=== PATIENT | female | born 1970 | race Caucasian/White ===

== ENCOUNTER 2016-05-26 17:22 | Observation (INO) | payer BC ==
[~2016-05-26] VITALS: Ht 175.3 cm; Wt 88.6 kg
[2016-05-26] VITALS (7 sets, daily range): BP systolic 142–195; BP diastolic 94–106; PULSE 89–105; RESP 16–18; TEMP 99.3; O2SAT 95–98
[2016-05-26] MEDS ORDERED: DOXY1TAB PO (17:45)
[2016-05-26] MEDS ORDERED: SODIUM CHLORID 0.9% 500 ML INJ 500 ML IV ONE (17:45)
[2016-05-26] MEDS ORDERED: NITROGLYCERIN 0.4 MG SL 25 TABS/BTL SL ONE (17:45)
[2016-05-26] MEDS ORDERED: LAMO150 PO (17:45)
[2016-05-26] MEDS ORDERED: SODIUM CHLORIDE 0.9% FLUSH 5 ML FLUSH IVF PRN (17:45)
[2016-05-26] MEDS ORDERED: LORA1TAB12 PO (17:45)
[2016-05-26] MEDS ORDERED: WELL200T PO (17:45)
--- NOTE | 2016-05-26 17:45 | PD ---
HPI Chief Complaint: Chest Pain Time Seen by Provider: 17:29 Travel History International Travel<30 days: No Contact w/Intl Traveler<30days: No Traveled to known affect area: No History of Present Illness HPI 45-year-old female presents with central chest heaviness that started this afternoon 45 minutes ago. She states she tried one of her lorazepam as when she 's had it in the past it was a panic attack but that did not help. She also took 4 baby aspirin and when it did not go away she came in here. She denies other associated symptoms. She states in 2007 she had chest pain and had a negative stress test workup at [facility]. Quality is heaviness. Severity is moderate. She denies specific modifying factors. [facility] Past Medical History Anxiety: Yes Depression: Yes ?: Not LMP: 04/27/16 Past Surgical History Surgical History: No Previous Surgery Social History Alcohol Use: No Tobacco Use: No Substance Use: No Allergies-Medications (Allergen,Severity, Reaction): Coded Allergies: No Known Allergies (Unverified , 05/26/16) Reported Meds & Prescriptions Reported Meds & Active Scripts Active Reported Milk Thistle 150 Mg Cap Doryx (Doxycycline Hyclate) 50 Mg Tab 50 Mg PO HS Lamictal (Lamotrigine) 150 Mg Tab 300 Mg PO DAILY Wellbutrin SR 12 HR (Bupropion HCl) 200 Mg Tab 200 Mg PO Q12HR Lorazepam 1 Mg Tab 1 Mg PO BID PRN Review of Systems Except as stated in HPI: all other systems reviewed are Neg Physical Exam Narrative GENERAL: Well-nourished, well-developed patient. SKIN: Warm and dry. HEAD: Normocephalic and atraumatic. EYES: No injection or drainage. ENT: No nasal drainage noted. NECK: Supple, trachea midline. CARDIOVASCULAR: Regular rate and rhythm RESPIRATORY: Breath sounds equal bilaterally. No accessory muscle use. GASTROINTESTINAL: Abdomen soft, non-tender, nondistended. EXTREMITIES: No edema. NEUROLOGICAL: Awake and alert. Motor and sensory grossly within normal limits. Normal speech. Data Data Last Documented VS Vital Signs Date Time Temp Pulse Resp B/P Pulse Ox O2 Delivery O2 Flow Rate FiO2 05/26/16 18:18 105 18 142/94 95 Room Air 05/26/16 17:35 99.3 Orders Electrocardiogram (05/26/16 17:37) Ckmb (Isoenzyme) Profile (05/26/16 17:37) Complete Blood Count With Diff (05/26/16 17:37) Comprehensive Metabolic Panel (05/26/16 17:37) D-Dimer (05/26/16 17:37) Magnesium (Mg) (05/26/16 17:37) Prothrombin Time / Inr (Pt) (05/26/16 17:37) Act Partial Throm Time (Ptt) (05/26/16 17:37) Troponin I (05/26/16 17:37) Chest, Single Ap (05/26/16 17:37) Ecg Monitoring (05/26/16 17:37) Bilateral Bp Monitoring (05/26/16 17:37) Iv Access Insert/Monitor (05/26/16 17:37) Oximetry (05/26/16 17:37) Sodium Chloride 0.9% Flush (Ns Flush) (05/26/16 17:45) Nitroglycerin Sl (Nitrostat Sl) (05/26/16 17:45) Sodium Chlorid 0.9% 500 Ml Inj (Ns 500 M (05/26/16 17:45) Labs Laboratory Tests Test 05/26/16 17:50 White Blood Count 8.2 TH/MM3 Red Blood Count 4.56 MIL/MM3 Hemoglobin 13.9 GM/DL Hematocrit 41.8 % Mean Corpuscular Volume 91.6 FL Mean Corpuscular Hemoglobin 30.5 PG Mean Corpuscular Hemoglobin 33.3 % Concent Red Cell Distribution Width 13.1 % Platelet Count 314 TH/MM3 Mean Platelet Volume 8.9 FL Neutrophils (%) (Auto) 58.3 % Lymphocytes (%) (Auto) 26.4 % Monocytes (%) (Auto) 10.3 % Eosinophils (%) (Auto) 3.9 % Basophils (%) (Auto) 1.1 % Neutrophils # (Auto) 4.8 TH/MM3 Lymphocytes # (Auto) 2.2 TH/MM3 Monocytes # (Auto) 0.8 TH/MM3 Eosinophils # (Auto) 0.3 TH/MM3 Basophils # (Auto) 0.1 TH/MM3 CBC Comment DIFF FINAL Differential Comment Prothrombin Time 10.1 SEC Prothromb Time International 0.9 RATIO Ratio Activated Partial 26.1 SEC Thromboplast Time D-Dimer Quantitative (PE/DVT) 0.24 MG/L FEU Sodium Level 139 MEQ/L Potassium Level 3.9 MEQ/L Chloride Level 104 MEQ/L Carbon Dioxide Level 25.1 MEQ/L Anion Gap 10 MEQ/L Blood Urea Nitrogen 16 MG/DL Creatinine 1.20 MG/DL Estimat Glomerular Filtration 49 ML/MIN Rate Random Glucose 113 MG/DL Calcium Level 8.5 MG/DL Magnesium Level 1.8 MG/DL Total Bilirubin 0.4 MG/DL Aspartate Amino Transf 16 U/L (AST/SGOT) Alanine Aminotransferase 29 U/L (ALT/SGPT) Alkaline Phosphatase 90 U/L Total Creatine Kinase 93 U/L Troponin I LESS THAN 0.02 NG/ML Total Protein 7.3 GM/DL Albumin 3.4 GM/DL MDM Medical Decision Making Medical Screen Exam Complete: Yes Emergency Medical Condition: Yes Medical Record Reviewed: Yes (past history confirmed) Interpretation(s) EKG shows NSR, no ST elevation or depression, and no arrhythmias. No significant T-wave inversions. Last 24 hours Impressions Chest X-Ray 05/26/16 [id number] Signed Impressions: Service Date/Time: Thursday, May 26, 2016 17:58 - CONCLUSION: No evidence of acute cardiopulmonary disease. Rubin Jenkins MD CBC & BMP Diagram 05/26/16 17:50 Differential Diagnosis Musculoskeletal, gastritis, PE, atypical cardiac Narrative Course Will check blood work, chest x-ray and dose with nitroglycerin and reevaluate ed workup no acute, agrees to [facility] observation Physician Communication Physician Communication dr shearer agrees to admit Diagnosis Primary Impression: Chest pain Qualified Code: R07.9 - Chest pain, unspecified type Admitting Information Admitting Physician Requests: Observation Anjelica Reid MD May 26, 2016 17:45
[2016-05-26] MEDS ORDERED: MILK150C (17:48)
[2016-05-26 18:10] LABS: AUTOMATED NEUTROPHIL # 4.8 TH/MM3 (1.8-7.7); BASOPHIL # 0.1 TH/MM3 (0-0.2); BASOPHIL % 1.1 % (0.0-2.0); EOSINOPHIL # 0.3 TH/MM3 (0-0.4); EOSINOPHIL % 3.9 % (0.0-4.0); HEMATOCRIT 41.8 % (35.0-46.0); HEMO FLAGS DIFF FINAL; LYMPH % 26.4 % (9.0-44.0); LYMPHOCYTE # 2.2 TH/MM3 (1.0-4.8); MEAN CELL VOLUME 91.6 FL (80.0-100.0); MEAN CORPUSCULAR HEMOGLOBIN 30.5 PG (27.0-34.0); MEAN CORPUSCULAR HGB CONC 33.3 % (32.0-36.0); MONO % 10.3 % (0.0-8.0); NEUT % 58.3 % (16.0-70.0); PLATELET COUNT 314 TH/MM3 (150-450); RED BLOOD COUNT 4.56 MIL/MM3 (4.00-5.30); RED CELL DISTRIBUTION WIDTH 13.1 % (11.6-17.2); WHITE BLOOD COUNT 8.2 TH/MM3 (4.0-11.0)
--- NOTE | 2016-05-26 18:17 | RADHPO ---
EXAM DATE/TIME: 05/26/2016 17:58 [facility] COMPARISON: No previous studies available for comparison. INDICATIONS : Chest pain. MEDICAL HISTORY : None. SURGICAL HISTORY : None. ENCOUNTER: Initial ACUITY: 1 day PAIN SCORE: 7/10 LOCATION: Bilateral chest FINDINGS: A single view of the chest demonstrates the lungs to be symmetrically aerated without evidence of mas s, infiltrate or effusion. The cardiomediastinal contours are unremarkable. Osseous structures are intact. CONCLUSION: No evidence of acute cardiopulmonary disease. Rubin Jenkins MD on May 26, 2016 at 18:14 Board Certified Radiologist. This report was verified electronically.
[2016-05-26 18:20] LABS: CHLORIDE 104 MEQ/L (98-107); POTASSIUM 3.9 MEQ/L (3.5-5.1); SODIUM (NA) 139 MEQ/L (136-145)
[2016-05-26 18:24] LABS: ANION GAP 10 MEQ/L (5-15); BICARBONATE 25.1 MEQ/L (21.0-32.0); BLOOD UREA NITROGEN 16 MG/DL (7-18)
[2016-05-26 18:27] LABS: ALT (GPT) 29 U/L (10-53); AST (GOT) 16 U/L (15-37); GLOMERULAR FILTRATION RATE 49 ML/MIN (>89)
[2016-05-26 18:28] LABS: MAGNESIUM 1.8 MG/DL (1.5-2.5); TOTAL BILIRUBIN ADULT 0.4 MG/DL (0.2-1.0)
[2016-05-26 18:30] LABS: ALKALINE PHOSPHATASE 90 U/L (45-117)
[2016-05-26 18:32] LABS: APTT (PATIENT) 26.1 SEC (24.3-30.1); CREATINE KINASE 93 U/L (26-192); INTERNATIONAL NORMALIZED RATIO 0.9 RATIO; PROTHROMBIN TIME - PATIENT 10.1 SEC (9.8-11.6)
[2016-05-26] MEDS ORDERED: SODIUM CHLORIDE 0.9% FLUSH 5 ML FLUSH IV PRN (19:15)
[2016-05-26] MEDS ORDERED: NITROGLYCERIN 0.4 MG SL 25 TABS/BTL SL PRN (19:15)
[2016-05-26 20:58] LABS: CREATINE KINASE 89 U/L (26-192)
[2016-05-26] MEDS: SODIUM CHLORIDE 0.9% FLUSH 5 ML FLUSH IV SCH (21:00)
[2016-05-27] VITALS (10 sets, daily range): BP systolic 143–170; BP diastolic 86–103; PULSE 78–90; RESP 18–20; TEMP 97.5–98.6; O2SAT 95–99
[2016-05-27 00:49] LABS: CREATINE KINASE 81 U/L (26-192)
[2016-05-27] MEDS ORDERED: LORazepam 1 MG TAB PO PRN (07:45)
--- NOTE | 2016-05-27 07:52 | EKG ---
Date Performed: 05/26/2016 Time Performed: 17:28:10 PTAGE: 45 years EKG: Sinus tachycardia. Poor R wave progression - probable normal variant Septal T wave changes are nonspecific Low QRS voltages in precordial leads Borderline ECG NO PREVIOUS TRACING DOCTOR: Adan Arzate Interpretating Date/Time 05/27/2016 07:50:39
--- NOTE | 2016-05-27 08:34 | HHI.HP ---
[facility] Service [place] Primary Care Physician No Primary Care Physician Admission Diagnosis chest pain Diagnoses: (1) Chest pain Diagnosis: Principal (2) Strain of left trapezius muscle Diagnosis: Principal (3) Hypertensive urgency Diagnosis: Principal (4) ANIRUDH (acute kidney injury) Diagnosis: Principal Chief Complaint: chest pain, neck pain Travel History International Travel<30 Days: No Contact w/Intl Traveler <30 Da: No Traveled to Known Affected Are: No History of Present Illness 45-year-old female with history of anxiety and depression and daily alcohol use presents with complaint of chest pain. The patient states that she started to experience pain in her left anterior chest and shoulder at 4:30 PM yesterday. She states it felt like a "burning" and lasted 30 minutes. Patient indicates that pain actually started in the left trapezius muscles and moved down into the chest. She states that she has had chronic neck stiffness and usually tries to "crack it" but this did not work yesterday. Denies any radiation of pain down the arms from the neck. Denies any numbness or tingling , or pain to the jaws or back. She took 4 baby aspirin and one lorazepam without relief. She denies any shortness of breath or pleuritic pain. She states she has had pain like this a couple of times before but not as bad. She has a history of anxiety but only takes lorazepam as needed. She has had one or two panic attacks in the past but does not get them regularly and denies any increased stress or anxiety yesterday. Denies being recently ill. Denies any abdominal pain, nausea, or vomiting. She has a history of heartburn but denies any regurgitation yesterday. Denies any history of DVT or PE, exogenous estrogen use, hemoptysis, leg swelling, active cancer, recent trauma/surgery/ hospitalization, or long sedentary travel. Patient had a treadmill stress test approximately 9 years ago which was normal. Patient tells me she drinks 3 vodkas daily as self medication for depression. States her last drink was on . Denies ever having withdrawal symptoms. She denies any history of SI or HI. She does follow with a psychiatrist. Has not seen a PCP in over 1 year. Review of Systems Constitutional: DENIES: Fever, Chills Eyes: DENIES: Blurred vision Ears, nose, mouth, throat: DENIES: Throat pain, Ear Pain, Running Nose Respiratory: DENIES: Cough, Hemoptysis, Shortness of breath Cardiovascular: COMPLAINS OF: Chest pain, DENIES: Lower Extremity Edema Gastrointestinal: DENIES: Abdominal pain, Diarrhea, Nausea, Vomiting Genitourinary: DENIES: Dysuria Musculoskeletal: COMPLAINS OF: Stiffness (neck, chronic), Neck pain, DENIES: Back pain Integumentary: DENIES: Rash Neurologic: DENIES: Headache Psychiatric: COMPLAINS OF: Depression, DENIES: Suicidal Ideation, Homicidal Ideation Past Family Social History Past Medical History Anxiety and depression Rosacea GERD Past Surgical History Tracheoesophageal fistula repair as a . Mandible surgery due to underbite and decreased blood flow to the jaw. Reported Medications Milk Thistle 150 Mg Cap Doryx (Doxycycline Hyclate) 50 Mg Tab 50 Mg PO HS for rosacea Lamictal (Lamotrigine) 150 Mg Tab 300 Mg PO DAILY for mood stabilization Wellbutrin SR 12 HR (Bupropion HCl) 200 Mg Tab 200 Mg PO Q12HR Lorazepam 1 Mg Tab 1 Mg PO BID PRN Allergies: Coded Allergies: No Known Allergies (Unverified , 05/26/16) Family History Mother and father healthy. No siblings. Social History Patient drinks 3 vodkas daily for the past 3 years self-medicating for depression. No history of tobacco use. Denies history of illicit drug use. Physical Exam Vital Signs Vital Signs Date Time Temp Pulse Resp B/P Pulse Ox O2 Delivery O2 Flow Rate FiO2 05/27/16 07:06 98.6 81 20 156/96 98 05/27/16 04:00 98.1 78 20 143/86 98 05/27/16 01:04 90 05/27/16 01:03 85 18 155/103 96 05/27/16 00:00 98.6 86 18 152/100 95 05/26/16 23:37 100 18 193/98 97 Room Air 05/26/16 23:37 100 18 100 Room Air 05/26/16 22:02 95 21 05/26/16 21:23 93 18 154/94 95 Room Air 05/26/16 21:23 93 18 95 Room Air 05/26/16 19:11 94 18 95 Room Air 05/26/16 19:11 95 18 167/99 95 Room Air 05/26/16 18:18 105 18 142/94 95 Room Air 05/26/16 18:17 16 05/26/16 17:57 89 164/97 162/106 05/26/16 17:57 16 96 05/26/16 17:39 18 97 Room Air 05/26/16 17:35 99.3 102 18 195/96 98 Physical Exam GENERAL: This is a well-nourished, well-developed patient, in no apparent distress. SKIN: No rashes, ecchymoses or lesions. Warm and dry. HEAD: Atraumatic. Normocephalic. EYES: Pupils equal round. No scleral icterus. No injection or drainage. ENT: MMM. NECK: No tenderness to palpation over cervical spine. Tender to palpation over left trapezius muscles. Patient has full lateral range of motion of neck in either direction without pain or difficulty, but has pain over the left side of neck with right lateral neck flexion. CHEST: No reproducible left chest wall tenderness. CARDIOVASCULAR: Regular rate and rhythm without murmurs, gallops, or rubs. RESPIRATORY: Clear to auscultation. Breath sounds equal bilaterally. No wheezes , rales, or rhonchi. GASTROINTESTINAL: Abdomen soft, non-tender, nondistended. No guarding. MUSCULOSKELETAL: No lower extremity edema bilaterally. NEUROLOGICAL: Awake and alert. No tremors. Motor grossly within normal limits. Normal speech. Laboratory Laboratory Tests Test 05/26/16 05/26/16 05/27/16 17:50 20:25 00:05 White Blood Count 8.2 Red Blood Count 4.56 Hemoglobin 13.9 Hematocrit 41.8 Mean Corpuscular Volume 91.6 Mean Corpuscular Hemoglobin 30.5 Mean Corpuscular Hemoglobin 33.3 Concent Red Cell Distribution Width 13.1 Platelet Count 314 Mean Platelet Volume 8.9 Neutrophils (%) (Auto) 58.3 Lymphocytes (%) (Auto) 26.4 Monocytes (%) (Auto) 10.3 Eosinophils (%) (Auto) 3.9 Basophils (%) (Auto) 1.1 Neutrophils # (Auto) 4.8 Lymphocytes # (Auto) 2.2 Monocytes # (Auto) 0.8 Eosinophils # (Auto) 0.3 Basophils # (Auto) 0.1 CBC Comment DIFF FINAL Differential Comment Prothrombin Time 10.1 Prothromb Time International 0.9 Ratio Activated Partial 26.1 Thromboplast Time D-Dimer Quantitative (PE/DVT) 0.24 Sodium Level 139 Potassium Level 3.9 Chloride Level 104 Carbon Dioxide Level 25.1 Anion Gap 10 Blood Urea Nitrogen 16 Creatinine 1.20 Estimat Glomerular Filtration 49 Rate Random Glucose 113 Calcium Level 8.5 Magnesium Level 1.8 Total Bilirubin 0.4 Aspartate Amino Transf 16 (AST/SGOT) Alanine Aminotransferase 29 (ALT/SGPT) Alkaline Phosphatase 90 Total Creatine Kinase 93 89 81 Troponin I LESS THAN 0.02 LESS THAN 0.02 LESS THAN 0.02 Total Protein 7.3 Albumin 3.4 Result Diagram: 05/26/16174905/26/161749 Imaging Last Impressions Chest X-Ray 05/26/161736 Signed Impressions: Service Date/Time: Thursday, May 26, 2016 17:58 - CONCLUSION: No evidence of acute cardiopulmonary disease. Rubin Jenkins MD Assessment and Plan Assessment and Plan 45-year-old female with: Chest pain: Patient describes a burning in the left chest yesterday, the pain actually started in the left trapezius muscles. Patient also has anxiety. No reproducible chest pain on exam. Patient took 324 mg of aspirin and Lorazepam prior to arrival without relief and received one dose of nitroglycerin in the ED. Chest x-ray personally interpreted without acute disease. D-dimer negative. Troponin 3 less than 0.02. CK 3 normal. CBC unremarkable. EKGs personally interpreted as below. EKG #1 with sinus tachycardia 100 bpm with nonspecific septal T wave inversion and poor R-wave progression. EKG #2 with sinus rhythm heart rate 91 and nonspecific septal T wave inversion and poor R-wave progression. EKG #3 with normal sinus rhythm. T waves are now positive in V2; no evidence of ischemia. -Nitro prn -Continue daily aspirin -Patient is agreeable to walking on a treadmill, but due to septal T wave abnormalities on EKG, will need to perform nuclear portion. NucETT will be ordered. Left trapezius muscle strain: Patient has some chronic stiffness in her neck and usually manipulates it herself to alleviate the pain yet this did not work yesterday. The pain actually started in trapezius muscle and radiated to the chest. -Ice/heat -NSAIDs prn Hypertensive urgency: Highest systolic blood pressure of 195. Improved but still elevated this morning Could be due to anxiety, pain. -Clonidine prn SBP>160 DBP >90 -Monitor ANIRUDH: Resolved. Cr 1.20-->0.89 although GFR is reduced. Daily alcohol use: Patient advised that she needs to stop drinking alcohol as this is dangerous to self medicate especially when combined with antidepressants. She denies any SI or HI. She does have a psychiatrist with whom she follows and she is advised to follow-up with them. Last drink was approximately 48 hours ago with no withdrawal symptoms evident although BP is elevated which may likely be unrelated. HR is normal. LFTs normal. GI prophylaxis: Pepcid DVT prevention: SCDs. ETT part of stress test was performed and there was significant artifact. Patient did experience intermittent burning pain over left chest during recovery without EKG changes. The nuclear portion of the test was completed and was normal with normal EF. Patient's blood pressure has been persistently elevated during hospitalization. She will be started on lisinopril 10 mg by mouth daily. She is advised to keep a log of her blood pressures and follow up with a PCP. Patient advised to take NSAIDs (with food) and alternate ice and heat for trapezius pain. She is advised to return to ED if she develops any change in symptoms such as chest pressure or heaviness, diaphoresis, radiating pain to the jaws or neck, worsening burning pain, or for any concerning symptoms. All of patient's questions were answered. Discharge disposition: Home in stable condition Diet: heart healthy, GERD Activity: Patient advised against heavy lifting due to trapezius pain. Medications: Lisinopril prescription. Continue home medications. Follow-up: PCP 1 week. Discussed Condition With patient, Dr. Cespedes Problem Qualifiers (1) Chest pain: Qualified Code: R07.9 - Chest pain, unspecified type Olinda Contreras May 27, 2016 08:34
[2016-05-27] MEDS: SODIUM CHLORIDE 0.9% FLUSH 5 ML FLUSH IV SCH (08:41)
[2016-05-27] MEDS ORDERED: buPROPion HCL 100 MG SUSTAINED RELEASE TAB PO SCH (09:00)
[2016-05-27] MEDS ORDERED: ASPIRIN 325 MG TAB PO SCH (09:00)
[2016-05-27] MEDS ORDERED: lamoTRIgine 100 MG TAB PO SCH (09:00)
[2016-05-27 09:14] LABS: CHLORIDE 104 MEQ/L (98-107); POTASSIUM 4.2 MEQ/L (3.5-5.1); SODIUM (NA) 140 MEQ/L (136-145)
[2016-05-27] MEDS ORDERED: cloNIDine HCL 0.1 MG TAB PO PRN (09:15)
[2016-05-27 09:17] LABS: ANION GAP 9 MEQ/L (5-15); BICARBONATE 27.1 MEQ/L (21.0-32.0); BLOOD UREA NITROGEN 10 MG/DL (7-18)
[2016-05-27 09:20] LABS: GLOMERULAR FILTRATION RATE 69 ML/MIN (>89)
[2016-05-27 09:25] LABS: BETA HCG QUANT LESS THAN 1 MIU/ML (0-5)
[2016-05-27] MEDS ORDERED: PNEUMOCOCCAL POLYVALENT INJ 25 MCG/0.5 ML SYR IM ONE (10:00)
[2016-05-27] MEDS ORDERED: FAMOTIDINE 20 MG TAB PO SCH (10:00)
--- NOTE | 2016-05-27 13:53 | RADHPO ---
EXAM DATE/TIME: 05/27/2016 12:02 [facility] COMPARISON: No previous studies available for comparison. INDICATIONS : Left sided chest pain for one day. Abnormal EKG. DOSE: 26.6 mCi Tc99m Myoview at stress 8.7 mCi Tc99m Myoview at rest REST HEART RATE: 100 BPM TARGET HEART RATE: 150 BPM MAX HEART RATE: 154 BPM REST BLOOD PRESSURE: 144/92 mmHg MAX BLOOD PRESSURE: 168/92 mmHg EJECTION FRACTION: 67% MEDICAL HISTORY : Gastroesophageal reflux disease. SURGICAL HISTORY : Tracheosophageal fistula. ENCOUNTER: Initial ACUITY: 1 day PAIN SCALE: 5/10 LOCATION: Left chest TECHNIQUE: The patient underwent upright treadmill exercise in the chest pain center. Continuous ECG tracing wa s monitored during stress. Gated SPECT imaging was performed after stress, and conventional SPECT im aging was performed at rest. The examination was performed on a SPECT/CT scanner, both attenuation-c orrected and non-corrected datasets were reviewed. FINDINGS: DISTRIBUTION: The maximum perfused segment at stress is in the septal wall. PERFUSION STUDY: The pattern of perfusion at stress is within normal limits. GATED STUDY: There is intact wall motion and thickening without hypokinetic or dyskinetic segments. CONCLUSION: No reversible perfusion defects. No focal wall motion abnormalities. Ejection fraction within normal limits. RISK CATEGORY: 1- Low Risk. Dawson Kraft MD on May 27, 2016 at 13:49 Board Certified Radiologist. This report was verified electronically.
--- NOTE | 2016-05-27 14:34 | EKG ---
Date Performed: 05/27/2016 Time Performed: 06:15:38 PTAGE: 45 years EKG: Sinus rhythm Normal ECG PREVIOUS TRACING : 05/26/2016 23.23 No significant change from previous tracing noted. DOCTOR: Adan Arzate Interpretating Date/Time 05/27/2016 14:32:30
--- NOTE | 2016-05-27 14:39 | EKG ---
Date Performed: 05/26/2016 Time Performed: 23:23:06 PTAGE: 45 years EKG: Sinus rhythm . Poor R wave progression - probable normal variant Septal T wave changes are nonspecific Borderline ECG PREVIOUS TRACING : 05/26/2016 23.22 No significant change from previous tracing noted. DOCTOR: Adan Arzate Interpretating Date/Time 05/27/2016 14:37:10
[2016-05-27] MEDS ORDERED: LISI10TA3 PO (15:15)
--- NOTE | 2016-05-27 15:15 | HHI.DCPOC ---
Discharge Care Plan Diagnosis: (1) Chest pain (2) Hypertensive urgency (3) Strain of left trapezius muscle (4) ANIRUDH (acute kidney injury) Your Health Problems Are: Chest Pain Goals to Promote Your Health * To prevent worsening of your condition and complications * To maintain your health at the optimal level Directions to Meet Your Goals Take your medications as prescribed Follow your dietary instruction Follow activity as directed Keep your appointments as scheduled Take your immunizations and boosters as scheduled If your symptoms worsen call your PCP, if no PCP go to Urgent Care Center or Emergency Room Smoking is Dangerous to Your Health. Avoid second hand smoke Call the 24-hour hour crisis hotline for domestic abuse at Olinda Contreras May 27, 2016 15:15
[2016-05-27] MEDS ORDERED: LISINOPRIL 10 MG TAB PO ONE (15:30)
--- NOTE | 2016-05-28 15:29 | TR ---
Date Performed: 05/27/2016 Time Performed: 12:16:01 DOCTOR: Ray Tijerina DRUG LIST: CLINICAL HISTORY: CHEST PAIN ABNORMAL ECG REASON FOR TEST: Chest pain WITH ABNORMAL EKG REASON FOR ENDING: OBSERVATION: CONCLUSION: NUC ETT: Patient tolerated YA protocol with Total Exercise Time=8:11 Maximum HR=1 54 % Max HR Achieved=87.0% Maximum RH=376/92. Testing stopped secondary to goal achieved and sufficie nt circulation of tracer. HR and BP appropriate response to exercise. Significant artifact during melanie ting. Patient developed burning sensation over L chest during recovery at 2:30 and has mild reproduci ble tenderness in this area; resolved 3 minutes later, but returned at 9:10 and intermittent since ge tting slightly worse, but no EKG changes present. BP recovered appropriately. HR slow to recover. COMMENTS: Conclusion: Normal treadmill exercise. No evidence of ischemia.
== END 2016-05-27 16:13 | disposition home or self-care (01) ==
LOC: PHED 17:22 → PHEDA 18:56 → PH3B 05-27 01:00
PROVIDERS: ADMIT Hospitalist; ATTEND Hospitalist
DX: R07.9 Chest pain, unspecified (principal); Z79.899 Other long term (current) drug therapy; S16.1XXA Strain of muscle, fascia and tendon at neck level, initial encounter; I16.0 Hypertensive urgency; N17.9 Acute kidney failure, unspecified; R12 Heartburn; F10.20 Alcohol dependence, uncomplicated; R00.0 Tachycardia, unspecified
CPT/HCPCS: 71010; 78452; 80048; 80053; 82550; 83735; 84484; 84702; 85025; 85379; 85610; 85730; 93005; 93017; 96360; 99285; A9502; G0378; J7040